=== PATIENT | female | born 1980 | race Caucasian/White ===

== ENCOUNTER 2021-09-12 22:14 | Emergency (ER) | payer MEDICAID ==
[~2021-09-12] VITALS: Ht 162.6 cm; Wt 81.2 kg
[2021-09-12] MEDS ORDERED: LACTULOSE10 GM PO (22:35)
[2021-09-12] MEDS ORDERED: SPIRONOLACTONE25 MG PO (22:35)
[2021-09-12] MEDS ORDERED: K-TAB ER20 MEQ PO (22:36)
[2021-09-12] MEDS ORDERED: OMEPRAZOLE10 MG PO (22:36)
[2021-09-12] MEDS ORDERED: FUROSEMIDE40 MG PO (22:36)
== END 2021-09-13 01:49 | disposition home or self-care (01) ==
LOC: ED 22:14
DX: D61.818 Other pancytopenia (principal); F10.20 Alcohol dependence, uncomplicated; D64.9 Anemia, unspecified; Z88.8 Allergy status to other drugs, medicaments and biological substances; Z88.5 Allergy status to narcotic agent; Z79.899 Other long term (current) drug therapy
CPT/HCPCS: 36415; 80053; 80503; 81001; 85025; 85610; 85730; 86900; 99283; P9035